=== PATIENT | female | born 1980 | race Caucasian/White ===

== ENCOUNTER 2018-11-03 19:51 | Emergency (ER) | payer SELFPAY ==
[2018-11-03 20:03] VITALS: BMI 24.3
--- NOTE | 2018-11-03 20:42 | PDOC ---
History of Present Illness - General Chief Complaint: Nausea/Vomiting Stated Complaint: FEVER/ABDOMINAL PAIN Time Seen by Provider: 11/03/18 20:42 History Source: Patient Exam Limitations: No Limitations - History of Present Illness Initial Comments: 38 year old female with no PMH presented to ED for nausea, vomiting, diarrhea, fever x3 days. Pt reported she recently returned from yesterday. Pt reported the vomiting has improved, she vomited once this AM, but since has been holding down food/water. Pt admitted to generalized abdominal cramping. Pt repoted she last took Tylenol at 1200 today. Pt stated her diarrhea was black on the first day, but she was taking peptobismol and when she stopped the diarrhea became loose/watery/yellow. ROS General: denied fever, chills, generalized weakness. HEENT: denied sore throat, rhinorrhea, ear pain. Cardiovascular: denied chest pain, palpitations, syncope, diaphoresis. Respiratory: denied shortness of breath, cough, sputum production, hemoptysis. Gastrointestinal: denied abdominal pain, nausea, vomiting, diarrhea, constipation, blood in stool. Genitourinary: denied dysuria, increased urinary frequency, hematuria, urinary incontinence, flank pain. Back: denied back pain. Musculoskeletal: denied joint pain, muscle pain, joint swelling. Neurological: denied headache, dizziness, numbness, tingling, weakness. Integumentary: denied rash, laceration, abrasion. Hematologic/Lymphatic: denied bruising or bleeding. PE Constitutional: Well-nourished, Well-developed, appearing stated age. HEENT: head is normocephalic, atraumatic. EOMI. PERRLA. no posterior pharyngeal erythema. dehydrated. Neck: supple. Full ROM. Cardiovascular: regular heart rhythm. no murmurs. no pericardial friction rub. Respiratory: clear to auscultation bilaterally. no crackles, rhonchi or wheezing. no stridor. Gastrointestinal: soft, nontender, flat. normal bowel sounds. no rebound, guarding, masses. Extremities: peripheral pulses intact. no lower extremity edema. Neurological: CN 2-12 grossly intact. moves all four extremities. Psych: awake, alert, oriented x3. follows commands. answers questions appropriately. Past History - Past Medical History Allergies/Adverse Reactions: Allergies Allergy/AdvReac Type Severity Reaction Status Date / Time No Known Drug Allergies Allergy Verified 06/20/13 13:16 Home Medications: Ambulatory Orders Ibuprofen [Advil -] 400 mg PO TID PRN 06/20/13 Ondansetron [Zofran Odt -] 4 mg SL TID #9 od.tablet 11/03/18 Anemia: No COPD: No Diabetes: No Thyroid Disease: No - Surgical History Appendectomy: Yes Orthopedic Surgery: No - Suicide/Smoking/Psychosocial Hx Smoking History: Never smoked Have you smoked in the past 12 months: No Hx Alcohol Use: Yes Drug/Substance Use Hx: No Substance Use Type: Alcohol *Physical Exam - Vital Signs Last Vital Signs Temp Pulse Resp BP Pulse Ox 102.3 F H 121 H 20 127/77 100 11/03/18 19:59 11/03/18 19:59 11/03/18 19:59 11/03/18 19:59 11/03/18 19:59 ED Treatment Course - LABORATORY CBC & Chemistry Diagram: 11/03/18 21:35 11/03/18 21:35 Medical Decision Making - Medical Decision Making 38 year old female with above PMH presented to ED for nausea, vomiting, diarrhea , generalized abdominal pain, recent travel from . Initial Vital Signs Temp Pulse Resp BP Pulse Ox 102.3 F H 121 H 20 127/77 100 11/03/18 19:59 11/03/18 19:59 11/03/18 19:59 11/03/18 19:59 11/03/18 19:59 Febrile. Tachycardic. No tachypnea. No hypotension. No hypoxia on room air. Labs ordered: CBC, CMP, lactate, mag, Imaging ordered: none Medications ordered: Tylenol IV, normal saline bolus 1000 cc once, zofran 4 mg IV once, pepcid IV EKG performed at 3: rate 111, normal axis, normal intervals, no acute ST changes. 11/03/18 22:24 CBC WBC 6.0 K/mm3 (4.0-10.0) 11/03/18 21:35 RBC 4.37 M/mm3 (3.60-5.2) 11/03/18 21:35 Hgb 12.6 GM/dL (10.7-15.3) 11/03/18 21:35 Hct 37.5 % (32.4-45.2) 11/03/18 21:35 MCV 86.0 fl (80-96) 11/03/18 21:35 MCH 28.8 pg (25.7-33.7) 11/03/18 21:35 MCHC 33.5 g/dl (32.0-36.0) 11/03/18 21:35 RDW 14.0 % (11.6-15.6) 11/03/18 21:35 Plt Count 157 K/MM3 (134-434) 11/03/18 21:35 MPV 8.8 fl (7.5-11.1) D 11/03/18 21:35 Absolute Neuts (auto) 4.7 K/mm3 (1.5-8.0) 11/03/18 21:35 Neutrophils % 79.3 % (42.8-82.8) D 11/03/18 21:35 Lymphocytes % 13.0 % (8-40) D 11/03/18 21:35 Monocytes % 7.4 % (3.8-10.2) 11/03/18 21:35 Eosinophils % 0.0 % (0-4.5) D 11/03/18 21:35 Basophils % 0.3 % (0-2.0) 11/03/18 21:35 Nucleated RBC % 0 % (0-0) 11/03/18 21:35 No leukocytosis. No anemia. No left shift. 11/03/18 22:27 Urine Test Results Urine Color Yellow 11/03/18 22:00 Urine Appearance Clear 11/03/18 22:00 Urine pH 8.0 (5.0-8.0) 11/03/18 22:00 Ur Specific [place] 1.010 (1.010-1.035) 11/03/18 22:00 Urine Protein Negative (NEGATIVE) 11/03/18 22:00 Urine Glucose (UA) Negative (NEGATIVE) 11/03/18 22:00 Urine Ketones Negative (NEGATIVE) 11/03/18 22:00 Urine Blood Negative (NEGATIVE) 11/03/18 22:00 Urine Nitrite Negative (NEGATIVE) 11/03/18 22:00 Urine Bilirubin Negative (NEGATIVE) 11/03/18 22:00 Ur Leukocyte Esterase Trace (NEGATIVE) 11/03/18 22:00 WBC<5 Negative for UTI. Negative for proteinuria, hematuria. 11/03/18 23:01 CMP Sodium 135 mmol/L (136-145) L 11/03/18 21:35 Potassium 3.7 mmol/L (3.5-5.1) 11/03/18 21:35 Chloride 102 mmol/L (98-107) 11/03/18 21:35 Carbon Dioxide 25 mmol/L (21-32) 11/03/18 21:35 Anion Gap 8 MMOL/L (8-16) 11/03/18 21:35 BUN 6.1 mg/dL (7-18) L 11/03/18 21:35 Creatinine 1.1 mg/dL (0.55-1.3) 11/03/18 21:35 Est GFR (CKD-EPI)AfAm 74.28 11/03/18 21:35 Est GFR (CKD-EPI)NonAf 64.09 11/03/18 21:35 Random Glucose 109 mg/dL (74-106) H 11/03/18 21:35 Lactic Acid 1.6 mmol/L (0.4-2.0) 11/03/18 21:35 Calcium 8.4 mg/dL (8.5-10.1) L 11/03/18 21:35 Magnesium 2.1 mg/dL (1.8-2.4) 11/03/18 21:35 Total Bilirubin 0.4 mg/dL (0.2-1) 11/03/18 21:35 AST 31 U/L (15-37) 11/03/18 21:35 ALT 25 U/L (13-61) 11/03/18 21:35 Alkaline Phosphatase 85 U/L (45-117) 11/03/18 21:35 Total Protein 7.2 g/dl (6.4-8.2) 11/03/18 21:35 Albumin 3.7 g/dl (3.4-5.0) 11/03/18 21:35 Lipase 124 U/L (73-393) 11/03/18 21:35 Serum , Qual Negative 11/03/18 21:35 Mild hyponatremia - IVF running. No hypokalemia, no hypomag. No TARA. No lactic acidosis. Lipase wnl. 11/03/18 23:32 Vital Signs Temperature 99.3 F 11/03/18 23:31 Pulse Rate 96 H 09/01/19 23:31 Respiratory Rate 18 11/03/18 23:31 Blood Pressure 119/68 11/03/18 23:31 O2 Sat by Pulse Oximetry (%) 98 11/03/18 23:31 Fever improving. Tachycardia improving. No hypotension. No hypoxia on room air. No tachypnea. Results explained to pt. Pt given return precautions, advised to F/U with PCP promptly. Pt discharged. *DC/Admit/Observation/Transfer Diagnosis at time of Disposition: Nausea vomiting and diarrhea - Discharge Dispostion Disposition: HOME Condition at time of disposition: Improved Decision to Admit order: No - Prescriptions Prescriptions: Ondansetron [Zofran Odt -] 4 mg SL TID #9 od.tablet - Referrals Referrals: Stephanie Reid MD [Primary Care Provider] - - Patient Instructions Printed Discharge Instructions: DI for Diarrhea and Traveler's Diarrhea -- Adult Additional Instructions: Your lab work was normal. Follow up with your primary care doctor within 3 days. Your care is not complete until you follow up. Drink pedialyte or gatorade throughout the day to replace the electrolyte and fluids you are losing the diarrhea. The diarrhea can continue longer than the vomiting, upwards of a week. Take Tylenol over the counter every 6-8 hours as needed for pain/fever. You can take ibuprofen at the same time, to help control the pain/fever. They are not the same medications. Return to the Emergency Department for increasing pain despite Tylenol use, chest pain, shortness of breath, vomiting blood, blood in stool, fever>5 days, fever>103F despite Tylenol use, lightheadedness, or any other new, worsening or concerning symptoms. - Post Discharge Activity Forms/Work/School Notes: Back to Work
[2018-11-03] MEDS ORDERED: ACETAMINOPHEN 1000 MG/100 ML VIAL (NON FORMULARY) IVPB ONE (20:43)
[2018-11-03] MEDS ORDERED: FAMOTIDINE 20 MG/50 ML IVPB 20 MG/50 ML MG IVPB ONE ×2 (20:43→22:05)
[2018-11-03] MEDS ORDERED: ONDANSETRON 4 MG/2 ML VIAL IVPUSH ONE (20:43)
[2018-11-03] MEDS ORDERED: SODIUM CHLORIDE 1,000 ML IV STA (20:43)
[2018-11-03 21:41] LABS: BASO % 0.3 % (0-2.0); HEMATOCRIT 37.5 % (32.4-45.2); HEMOGLOBIN 12.6 GM/dL (10.7-15.3); MCH 28.8 pg (25.7-33.7); MCHC 33.5 g/dl (32.0-36.0); MEAN PLT VOLUME 8.8 fl (7.5-11.1); MONO % 7.4 % (3.8-10.2); NEUT % 79.3 % (42.8-82.8); PLATELET COUNT 157 K/MM3 (134-434); RBC 4.37 M/mm3 (3.60-5.2)
--- NOTE | 2018-11-03 21:55 | PDOC ---
Documentation entered by Ryan Rivera SCRIBE, acting as scribe for Sierra Rodriguez MD. Sierra Rodriguez MD: This documentation has been prepared by the Miguel thompson Xhesika, SCRIBE, under my direction and personally reviewed by me in its entirety. I confirm that the documentation accurately reflects all work, treatment, procedures, and medical decision making performed by me. Attending Attestation - Resident Resident Name: Jody Garcia - ED Attending Attestation I have performed the following: I have examined & evaluated the patient, The case was reviewed & discussed with the resident, I agree w/resident's findings & plan, Exceptions are as noted - HPI HPI: 11/03/18 20:57 The patient is a 38 year old female with no significant PMH of who presents to the emergency department for nausea, vomiting (most recent episode this morning ) and diarrhea, fever x 3days. The patient states the first day her diarrhea was dark, she took pepto bismol, and after her diarrhea was watery. Patient states she got back from the [place] yesterday. Patient notes she is endorsing assocaied abdominal cramping and took Tylenol at 12pm. The patient denies chest pain, shortness of breath, headache and dizziness. Denies chills, cough, and constipation. Denies dysuria, frequency, urgency and hematuria. Allergies: NKDA - Physicial Exam PE: 11/03/18 22:04 GENERAL: Awake, alert, and fully oriented, in no acute distress. (+) febrile HEAD: No signs of trauma EYES: PERRLA, EOMI, sclera anicteric, conjunctiva clear ENT: Auricles normal inspection, hearing grossly normal, nares patent, oropharynx clear without exudates. Moist mucosa NECK: Normal ROM, supple, no lymphadenopathy, JVD, or masses LUNGS: Breath sounds equal, clear to auscultation bilaterally. No wheezes, and no crackles HEART:(+) tachycardic, normal S1 and S2, no murmurs, rubs or gallops ABDOMEN: (+) mild L flank pain to deep palpation. Soft, nontender, normoactive bowel sounds. No guarding, no rebound. No masses EXTREMITIES: Normal range of motion, no edema. No clubbing or cyanosis. No cords, erythema, or tenderness NEUROLOGICAL: Cranial nerves II through XII grossly intact. SKIN: Warm, Dry, normal turgor, no rashes or lesions noted. - Medical Decision Making 11/04/18 02:15 pt 's symptoms improved with IVF,tylenol viral illness w diarrhea
[2018-11-03 22:00] LABS: INR 1.16 (0.83-1.09); PROTHROMBIN TIME (PATIENT) 13.7 SEC (9.7-13.0)
[2018-11-03 22:02] LABS: ACTIVATED PTT 31.6 SECONDS (25.2-36.5)
[2018-11-03] MEDS ORDERED: ACETAMINOPHEN INJECTION 100 ML IVPB ONE (22:04)
[2018-11-03] MEDS ORDERED: ONDANSETRON 4 MG/2 ML VIAL ONE (22:04)
[2018-11-03 22:25] LABS: ALBUMIN 3.7 g/dl (3.4-5.0); BILIRUBIN,TOTAL 0.4 mg/dL (0.2-1); BLOOD UREA NITROGEN 6.1 mg/dL (7-18); CALCIUM 8.4 mg/dL (8.5-10.1); CREATININE 1.1 mg/dL (0.55-1.3); POTASSIUM 3.7 mmol/L (3.5-5.1); TOT PROT 7.2 g/dl (6.4-8.2)
[2018-11-03 22:25] LABS: EPI CELLS 2.5 /HPF (0-5/HPF); HYALINE CASTS 0 /lpf (0-8); URINE APPEARANCE CLEAR; URINE BACTERIA 59.6 /hpf (NEGATIVE); URINE BILIRUBIN NEGATIVE (NEGATIVE); URINE COLOR YELLOW; URINE GLUCOSE (UA) NEGATIVE (NEGATIVE); URINE KETONE NEGATIVE (NEGATIVE); URINE LEUK ESTERASE TRACE (NEGATIVE); URINE NITRITE NEGATIVE (NEGATIVE); URINE PROTEIN NEGATIVE (NEGATIVE); URINE RBC 0 /hpf (0-4); URINE WBC 2 /hpf (0-5)
[2018-11-03 22:52] LABS: MAGNESIUM 2.1 mg/dL (1.8-2.4)
[2018-11-03 23:32] VITALS: BP 119/68; PULSE 96; TEMP 99.3
--- NOTE | 2018-11-04 14:52 | EKG ---
Test Reason : Blood Pressure : / mmHG Vent. Rate : 111 BPM Atrial Rate : 111 BPM P-R Int : 142 ms QRS Dur : 080 ms QT Int : 296 ms P-R-T Axes : 065 060 028 degrees QTc Int : 402 ms SINUS TACHYCARDIA POSSIBLE LEFT ATRIAL ENLARGEMENT BORDERLINE ECG NO PREVIOUS ECGS AVAILABLE Confirmed by CHUYITA NARANJO, NATASHA ([id number]) on 11/04/2018 2:52:33 PM Referred By: Confirmed By:NATASHA BOOGIE MD
== END 2018-11-04 00:37 | disposition home or self-care (01) ==
LOC: JER 19:51
PROC: 3E0337Z Introduction of Electrolytic and Water Balance Substance into Peripheral Vein, Percutaneous Approach (ICD-10-PCS; principal; 2018-11-03)
PROC: 3E033GC Introduction of Other Therapeutic Substance into Peripheral Vein, Percutaneous Approach (ICD-10-PCS; 2018-11-03)
PROC: 3E033GC Introduction of Other Therapeutic Substance into Peripheral Vein, Percutaneous Approach (ICD-10-PCS; 2018-11-03)
PROC: 3E033NZ Introduction of Analgesics, Hypnotics, Sedatives into Peripheral Vein, Percutaneous Approach (ICD-10-PCS; 2018-11-03)
DX: B34.9 Viral infection, unspecified (principal)
CPT/HCPCS: 36415; 80053; 81003; 83605; 83690; 83735; 84703; 85025; 85610; 85730; 87086; 93005; 93010; 99283-25; J0131; J7030

== ENCOUNTER 2018-12-19 05:01 | Day surgery (SDC) | payer OTHER ==
[2018-12-11 11:17] VITALS: BMI 24.4
[2018-12-19 06:20] LABS: HEMATOCRIT 38.1 % (32.4-45.2); HEMOGLOBIN 12.9 GM/dL (10.7-15.3); MCH 29.2 pg (25.7-33.7); MEAN CELL VOLUME 85.9 fl (80-96); MEAN PLT VOLUME 8.9 fl (7.5-11.1); PLATELET COUNT 181 K/MM3 (134-434); RBC 4.43 M/mm3 (3.60-5.2); RDW 13.7 % (11.6-15.6); WHITE BLOOD COUNT 4.9 K/mm3 (4.0-10.0)
[2018-12-19] MEDS ORDERED: EPHEDRINE SULFATE/0.9% NACL/PF 50 MG/10 ML SYRINGE NR ONE (07:24)
[2018-12-19] MEDS ORDERED: DEXAMETHASONE SOD PHOSPHATE 4 MG/1 ML VIAL ONE (07:24)
[2018-12-19] MEDS ORDERED: MIDAZOLAM HCL 2 MG/2 ML SINGLE DOSE VIAL ONE ×2 (07:25)
[2018-12-19] MEDS ORDERED: PROPOFOL 20 ML ONE ×2 (07:25)
[2018-12-19] MEDS ORDERED: SUCCINYLCHOLINE CHLORIDE 200 MG/10 ML SYRINGE ONE (07:25)
--- NOTE | 2018-12-19 07:57 | HP ---
Admitting History and Physical - Admission Chief Complaint: Cervical dysplasia History of Present Illness: 38 yo Para 2 with cervical dysplasia is pre op for Loop Electrode Excisional Procedure. History Source: Patient Limitations to Obtaining History: No Limitations - Past Medical History ...LMP: 12/06/18 ...: No ...Para: 2 - Past Surgical History Past Surgical History: Yes: None - Smoking History Smoking history: Never smoked Have you smoked in the past 12 months: No - Alcohol/Substance Use Hx Alcohol Use: No - Social History History of Recent Travel: No Home Medications - Allergies Allergies/Adverse Reactions: Allergies Allergy/AdvReac Type Severity Reaction Status Date / Time No Known Drug Allergies Allergy Verified 12/19/18 06:26 - Home Medications Home Medications: Ambulatory Orders NK [No Known Home Medication] 12/11/18 Family Medical History Family History: Unremarkable Review of Systems - Review of Systems Constitutional: reports: No Symptoms Neck: reports: No Symptoms Cardiovascular: reports: No Symptoms Respiratory: reports: No Symptoms Gastrointestinal: reports: No Symptoms Genitourinary: reports: No Symptoms Breasts: reports: No Symptoms Reported Musculoskeletal: reports: No Symptoms Integumentary: reports: No Symptoms Neurological: reports: No Symptoms Endocrine: reports: No Symptoms Hematology/Lymphatic: reports: No Symptoms Psychiatric: reports: No Symptoms Pain Intensity: 0 Physical Examination Vital Signs: Vital Signs Temperature 98.2 F 12/19/18 06:30 Pulse Rate 86 12/19/18 06:30 Respiratory Rate 16 12/19/18 06:30 Blood Pressure 131/79 12/19/18 06:30 O2 Sat by Pulse Oximetry (%) 100 12/19/18 06:30 Constitutional: No: No Distress Eyes: Yes: Conjunctiva Clear HENT: Yes: Atraumatic Neck: Yes: Supple Cardiovascular: Yes: Regular Rate and Rhythm Respiratory: Yes: Regular Gastrointestinal: Yes: Normal Bowel Sounds Breast(s): Yes: WNL Musculoskeletal: Yes: WNL Extremities: Yes: WNL Neurological: Yes: Alert, Oriented ...Motor Strength: WNL Psychiatric: Yes: Alert, Oriented Labs: CBC, BMP 12/19/18 06:10 Problem List - Problems (1) Cervical dysplasia Code(s): N87.9 - DYSPLASIA OF CERVIX UTERI, UNSPECIFIED Assessment/Plan Cervical dysplasia Pre op for LEEP Consent signed Anesthesia to see patient
--- NOTE | 2018-12-19 08:38 | OP ---
Operative Note - Note: Operative Date: 12/19/18 Pre-Operative Diagnosis: Cervical dysplasia Operation: Loop Electrode Excisional Procedure Findings: Unstained areal of cervix with Barlow solution. Post-Operative Diagnosis: Same as Pre-op Surgeon: Stephanie Tian Anesthesia: General Specimens Removed: Portion of the cervix Estimated Blood Loss (mls): 10 Operative Report Dictated: Yes
[2018-12-19] MEDS ORDERED: ONDANSETRON 4 MG/2 ML VIAL IVPUSH PRN (08:47)
[2018-12-19] MEDS ORDERED: oxyCODONE HCL 5 MG TABLET PO PRN (08:47)
[2018-12-19] MEDS ORDERED: LACTATED RINGERS SOLUTION 1,000 ML IV SCH (09:00)
[2018-12-19 12:19] VITALS: BP 120/70; PULSE 80; TEMP 98.6
--- NOTE | 2018-12-23 13:45 | PATH ---
Surgical Pathology Report Patient Name: CHET PIERRE [facility]. Rec. #: [id number] /Age/Gender: 1980 (Age: 38) / F Account: [id number] Location: [facility] Taken: 12/19/2018 Received: 12/19/2018 Reported: 12/23/2018 Physicians: Stephanie Tian M.D. Specimen(s) Received LEEP PORTION OF CERVIX Clinical History Cervical dysplasia Final Diagnosis CERVIX, LOOP ELECTROSURGICAL EXCISION PROCEDURE (LEEP)/CONE BIOPSY: CERVICAL SQUAMOUS AND ENDOCERVICAL MUCOSA WITH FOCAL HIGH GRADE SQUAMOUS INTRAEPITHELIAL LESION (CERVICAL INTRAEPITHELIAL NEOPLASIA 3/ MARIE 3) AND GLANDULAR INVOLVEMENT IN 12-3:00 QUADRANT; AREAS OF LOW GRADE SQUAMOUS INTRAEPITHELIAL LESION ALSO PRESENT. SURGICAL RESECTION MARGINS: NEGATIVE FOR HIGH GRADE DYSPLASIA. TRANSFORMATION ZONE: PRESENT. Electronically Signed Yesica Hernandez M.D. Gross Description Received in formalin labeled "portion of cervix," are 2 portions of soft tissue measuring 1.5 x 1.4 x 1.0 cm and 1.4 x 0.5 x 0.3 cm. The larger portion displays a suture marking the 12:00 aspect, per the surgeon. The larger portion is partially surfaced by a sanchez-pink, shiny mucosa. The specimen is inked blue and serially sectioned. The specimen is entirely submitted in 4 cassettes as follows: 1-12:00 to 3:00; 2-presumed 3:00 to 6:00; 3-presumed 6:00 to to 9:00; 4-9:00 to 12:00. /12/19/2018 saudi/12/19/2018
--- NOTE | 2018-12-23 15:55 | OP ---
DATE OF OPERATION: 12/19/2018 PREOPERATIVE DIAGNOSIS: Cervical dysplasia. POSTOPERATIVE DIAGNOSIS: Cervical dysplasia. PROCEDURE: A loop electrosurgical excision procedure. SURGEON: Stephanie Tian MD ANESTHESIA: General. COMPLICATIONS: None. ESTIMATED BLOOD LOSS: 10 mL. DESCRIPTION OF PROCEDURE: Patient was taken to the operating room where general anesthesia was administered. Patient was then placed in lithotomy position. She was then prepped in proper sterile fashion, and the vaginal area was prepped with acetic acid. Then, a weighted speculum was placed in the vagina. The anterior lip of the cervix was grasped with a single-tooth tenaculum. A suture was placed at the 12 o'clock position. Then, using Lugol solution, the cervix and vagina were stained with Lugol solution. The posterior portion of the cervix remained unstained with the Lugol solution. Then, using a large loop, the portion of the cervix was excised. Hemostasis was obtained using cautery and Monsel solution, and in the end, Surgicel was placed to obtain hemostasis. When finished, the instruments were removed. The patient was taken out of lithotomy position. She was taken to PACU in stable condition. PATHOLOGY: Portion of the cervix. Raisa [id number] MTDD
== END 2018-12-19 12:00 | disposition home or self-care (01) ==
LOC: JASU-SURG 05:01
PROVIDERS: ATTEND Obstetrics & Gynecology
PROC: 0UBC7ZX Excision of Cervix, Via Natural or Artificial Opening, Diagnostic (ICD-10-PCS; principal; 2018-12-19 07:30)
DX: N87.9 Dysplasia of cervix uteri, unspecified (principal)
CPT/HCPCS: 36415; 84703; 85027; 88307-TC; 94760